=== PATIENT | female | born 1995 | race Caucasian/White ===

== ENCOUNTER 2017-06-22 20:33 | Emergency (ER) | payer OTHER ==
[2017-06-22 21:07] LABS: Bilirubin Negative (Negative); Blood, Urine Negative (Negative); Clarity CLEAR (Clear); Glucose, Urine (Dipstick) Negative (Negative); Leukocyte Negative (Negative); Nitrite Negative (Negative); Protein, Urine (Dipstick) Negative (Neg-Trace); Specific Gravity, Urine 1.007 (1.002-1.036); Urobilinogen 0.2 mg/dL (0.2-1.0); pH, Urine 6.5 (5.0-9.0)
--- NOTE | 2017-06-22 22:57 | CT ---
CT OF THE HEAD WITHOUT CONTRAST 06/22/17 COMPARISON: None. HISTORY: Vision loss. Difficulty speaking. TECHNIQUE: Serial axial CT imaging 5 mm intervals from vertex through skull base without contrast. FINDINGS: The imaged paranasal sinuses/mastoid air cells are well aerated. There is no displaced calvarial frac ture. There is no intracranial hemorrhage, midline sift, mass effect, or ventricular enlargement. IMPRESSION: No intracranial hemorrhage - no acute findings. POS: [facility]
[2017-06-22] MEDS ORDERED: Ketorolac Tromethamine 60 MG/2 ML VIAL ONE (23:20)
--- NOTE | 2017-06-25 18:04 | EKG ---
Test Reason : Blood Pressure : / mmHG Vent. Rate : 107 BPM Atrial Rate : 107 BPM P-R Int : 150 ms QRS Dur : 078 ms QT Int : 340 ms P-R-T Axes : 068 077 048 degrees QTc Int : 453 ms Sinus tachycardia Otherwise normal ECG Confirmed by KATHY SANCHEZ MD ([id number]), development editor MARY BOOTH ([id number] on 06/25/2017 6:03:40 PM Referred By: Confirmed By:KATHY SANCHEZ MD
== END 2017-06-22 23:50 | disposition home or self-care (01) ==
LOC: ERS 20:33
DX: G43.109 Migraine with aura, not intractable, without status migrainosus (principal); F41.9 Anxiety disorder, unspecified
CPT/HCPCS: 36416; 70450; 81003; 93005; 96372; J1885